=== PATIENT | female | born 1960 | race Caucasian/White ===

== ENCOUNTER 2016-04-29 11:06 | Emergency (ER) | payer MEDICARE, MEDICAID ==
[~2016-04-29] VITALS: Ht 175.3 cm; Wt 108.0 kg
[~2016-04-29 11:06] MED LIST: ASPI325T PO; DEPA500T3 PO; FERR140T PO; FIORIC PO; HYDR-2768 PO; LIPI40TA PO; LISI-363 PO; METO50TA PO; NOVO7030P2 SQ; ZOFR4TAB3 SL
[2016-04-29 11:08] VITALS: BP 203/95; PULSE 79; RESP 18; TEMP 97.5; O2SAT 95
[2016-04-29 11:23] VITALS: BP 162/72; PULSE 80; RESP 16; O2SAT 96
[2016-04-29] MEDS ORDERED: SODIUM CHLOR 0.9% 1000 ML INJ 1,000 ML IV ONE ×2 (11:32→12:02)
--- NOTE | 2016-04-29 11:34 | PD ---
HPI Chief Complaint: Abdominal Pain Time Seen by Provider: 11:21 Travel History International Travel<30 days: No Contact w/Intl Traveler<30days: No Traveled to known affect area: No History of Present Illness HPI 55-year-old female with history of diabetes, here for evaluation of nausea, dry heaves, diarrhea, and headache. Symptoms started this morning. Patient reports that she drank a moderate amount of alcohol last night. She takes alcohol occasionally. She thought she may have been experiencing a hangover, but this feels a little bit different than usual hangovers. Headache is frontal , 4 out of 10, somewhat improved after taking naproxen at home. No fever, but she feels chills. No neck pain or stiffness. No chest pain or dyspnea. No abdominal pain. Bowel movements are nonbloody. PFSH Past Medical History Anxiety: Yes Depression: Yes Cardiac Catheterization: Yes (X4) Cardiovascular Problems: Yes (HTN ) Cerebrovascular Accident: Yes Coronary Artery Disease: Yes Diabetes: Yes Patient Takes Glucophage: Yes Diminished Hearing: No Hypertension: Yes Myocardial Infarction: Yes Seizures: Yes Influenza Vaccination: No ?: Not Menopausal: Yes Past Surgical History Coronary Stent: Yes (4 STENTS) Social History Alcohol Use: Yes (OCC) Tobacco Use: Yes Substance Use: No Allergies-Medications (Allergen,Severity, Reaction): Coded Allergies: No Known Allergies (Unverified , 04/29/16) Reported Meds & Prescriptions Reported Meds & Active Scripts Active Reported Metoprolol Tartrate 50 Mg Tab 50 Mg PO DAILY Lisinopril 20 Mg Tab 20 Mg PO DAILY Novolin 70-30 Inj (Insulin Human Isoph/Insulin Regular) 1,000 Unit/10 Ml Vial 25 Units SQ BID Hydrochlorothiazide 25 Mg Tab 25 Mg PO DAILY Ferrous Sulfate 325 Mg Tab 325 Mg PO DAILY Depakote ER (Divalproex Sodium) 500 Mg Eri 500 Mg PO DAILY Aspirin 325 Mg Tab 325 Mg PO DAILY Review of Systems Except as stated in HPI: all other systems reviewed are Neg Physical Exam Narrative GENERAL: Well-developed, well-nourished, comfortable, no acute distress. SKIN: Warm and dry. HEAD: Atraumatic. Normocephalic. EYES: Pupils equal and round. No scleral icterus. No injection or drainage. ENT: No nasal bleeding or discharge. Mucous membranes pink and dry. NECK: Trachea midline. No JVD. CARDIOVASCULAR: Regular rate and rhythm. RESPIRATORY: No accessory muscle use. Clear to auscultation. Breath sounds equal bilaterally. GASTROINTESTINAL: Abdomen soft, non-tender, nondistended. MUSCULOSKELETAL: No obvious deformities. No clubbing. No cyanosis. No edema. NEUROLOGICAL: Awake and alert. No obvious cranial nerve deficits. Motor grossly within normal limits. Normal speech. PSYCHIATRIC: Appropriate mood and affect; insight and judgment normal. Data Data Last Documented VS Vital Signs Date Time Temp Pulse Resp B/P Pulse Ox O2 Delivery O2 Flow Rate FiO2 04/29/16 14:44 85 16 169/72 95 Room Air 04/29/16 11:08 97.5 Orders Electrocardiogram (04/29/16 11:32) Complete Blood Count With Diff (04/29/16 11:32) Comprehensive Metabolic Panel (04/29/16 11:32) Beta Hydroxybutyrate (Acetone) (04/29/16 11:32) Urinalysis - C+S If Indicated (04/29/16 11:32) Ecg Monitoring (04/29/16 11:32) Iv Access Insert/Monitor (04/29/16 11:32) Oximetry (04/29/16 11:32) NPO (04/29/16 11:32) Sodium Chlor 0.9% 1000 Ml Inj (Ns 1000 M (04/29/16 11:32) Sodium Chlor 0.9% 1000 Ml Inj (Ns 1000 M (04/29/16 12:02) Sodium Chloride 0.9% Flush (Ns Flush) (04/29/16 11:45) Lipase (04/29/16 11:32) Metoclopramide Inj (Reglan Inj) (04/29/16 11:45) Ct Abd/Pel W Iv Contrast(Rout) (04/29/16 12:54) Ct Brain W/O Iv Contrast(Rout) (04/29/16 ) Morphine Inj (Morphine Inj) (04/29/16 13:00) Iohexol 350 Inj (Omnipaque 350 Inj) (04/29/16 14:25) Labs Laboratory Tests Test 04/29/16 04/29/16 11:45 12:55 White Blood Count 8.6 TH/MM3 Red Blood Count 5.89 MIL/MM3 Hemoglobin 14.1 GM/DL Hematocrit 43.8 % Mean Corpuscular Volume 74.4 FL Mean Corpuscular Hemoglobin 24.0 PG Mean Corpuscular Hemoglobin 32.2 % Concent Red Cell Distribution Width 23.5 % Platelet Count 246 TH/MM3 Mean Platelet Volume 7.9 FL Neutrophils (%) (Auto) 83.3 % Lymphocytes (%) (Auto) 9.6 % Monocytes (%) (Auto) 2.1 % Eosinophils (%) (Auto) 3.9 % Basophils (%) (Auto) 1.1 % Neutrophils # (Auto) 7.2 TH/MM3 Lymphocytes # (Auto) 0.8 TH/MM3 Monocytes # (Auto) 0.2 TH/MM3 Eosinophils # (Auto) 0.3 TH/MM3 Basophils # (Auto) 0.1 TH/MM3 CBC Comment AUTO DIFF Differential Total Cells 100 Counted Neutrophils % (Manual) 63 % Band Neutrophils % 15 % Lymphocytes % 13 % Monocytes % 1 % Eosinophils % 6 % Basophils % 2 % Neutrophils # (Manual) 6.7 TH/MM3 Nucleated Red Blood Cells 1 /100 WBC Differential Comment FINAL DIFF MANUAL Platelet Estimate NORMAL Platelet Morphology Comment NORMAL Tear Drop Cells 1+ Ovalocytes 2+ Sodium Level 136 MEQ/L Potassium Level 4.9 MEQ/L Chloride Level 102 MEQ/L Carbon Dioxide Level 24.7 MEQ/L Anion Gap 9 MEQ/L Blood Urea Nitrogen 17 MG/DL Creatinine 0.99 MG/DL Estimat Glomerular Filtration 58 ML/MIN Rate Random Glucose 143 MG/DL Calcium Level 8.7 MG/DL Total Bilirubin 1.1 MG/DL Aspartate Amino Transf 29 U/L (AST/SGOT) Alanine Aminotransferase 27 U/L (ALT/SGPT) Alkaline Phosphatase 235 U/L Total Protein 7.3 GM/DL Albumin 3.9 GM/DL Lipase 134 U/L B-Hydroxybutyrate 0.10 MMOL/L Urine Color YELLOW Urine Turbidity CLEAR Urine pH 5.5 Urine Specific [place] 1.010 Urine Protein 30 mg/dL Urine Glucose (UA) NEG mg/dL Urine Ketones NEG mg/dL Urine Occult Blood NEG Urine Nitrite NEG Urine Bilirubin NEG Urine Urobilinogen LESS THAN 2.0 MG/DL Urine Leukocyte Esterase SMALL Urine RBC LESS THAN 1 /hpf Urine WBC 3 /hpf Urine Squamous Epithelial 2 /hpf Cells Urine Bacteria RARE /hpf Urine Hyaline Casts 2 /lpf Microscopic Urinalysis Comment CULT NOT INDICATED MDM Medical Decision Making Medical Screen Exam Complete: Yes Emergency Medical Condition: Yes Medical Record Reviewed: Yes Interpretation(s) EKG: Sinus, rate 80, normal axis, normal intervals, no acute ischemic abnormality. Differential Diagnosis Gastroenteritis, dehydration, DKA, metabolic abnormality, tension headache, cluster headache, SAH/meningitis/encephalitis unlikely Narrative Course Initial vital signs show heart rate 79, blood pressure 203/95 which improved to 162/72 without any intervention, pulse ox 96% on room air, oral temp of 97.5F. CBC shows WBCs 8.6, hemoglobin 14.1, hematocrit 43.8, platelets 246, neutrophils 83%, band neutrophils 15%. CMP shows an alkaline phosphatase of 235, random glucose 143, otherwise unremarkable. Beta hydroxybutyrate is 0.10. The patient is not in DKA. Patient was given 2 L of IV normal saline as well as IV Reglan. She is still complaining of headache as well as nauseous and this and cramping in her abdomen. CT abdomen and pelvis and CT head will be ordered. CT head: CONCLUSION: No acute intracranial abnormality is identified. There is encephalomalacia in the left frontal periventricular white matter. CT abdomen pelvis: CONCLUSION: 1. No acute finding is identified to explain the abdominal pain. 2. Liver has a morphology diagnostic of cirrhosis. There is also splenomegaly suggesting portal hypertension. 3. Abnormal increased density of the pelvic bones, sacrum, and proximal femora. The appearance is not typical for Paget's disease but that is included in the differential diagnosis. It seems unlikely that metastatic disease would involve these localized area. However, this finding should be correlated with the clinical history. 4. Calcification in the gallbladder fossa region may represent a calcified stone are in a decompressed gallbladder. 5. Calcified uterus mass measuring 6 cm likely representing a leiomyoma but incompletely characterized on this study. The patient was made aware of all findings and was provided a copy of her CT abdomen pelvis report. She was given 2 L of normal saline IV, IV Reglan, and IV morphine and is feeling much improved. Her headache has resolved. She no longer feels nauseous. I discussed in depth all findings on her CT abdomen pelvis. All of these findings can be followed up as an outpatient. Patient states that she is in the process of finding a primary care physician, and believes she will have a new primary care physician this week. She is stable for discharge home with outpatient follow-up. She was informed on when to return to the emergency department. She verbalizes understanding and agreement with plan. Diagnosis Primary Impression: Nausea Additional Impressions: Abdominal pain Qualified Code: R10.9 - Abdominal pain, unspecified location Headache Qualified Code: R51 - Nonintractable headache, unspecified chronicity pattern , unspecified headache type Referrals: Primary Care Physician 3 days Additional Instructions: Follow-up with a primary care physician this week regarding your CT abdomen findings. Return to the emergency department for worsening symptoms or any other concerns. Scripts Ondansetron Odt (Zofran Odt)4 Mg Tab4 Mg SL Q6HR PRN (Nausea/Vomiting) #15 TAB Ref 0 Prov:Bairon Hankins MD 04/29/16 Disposition: 01 DISCHARGE HOME Condition: Stable Bairon Hankins MD Apr 29, 2016 11:34
[2016-04-29] MEDS ORDERED: METOCLOPRAMIDE HCL 10 MG/2 ML VIAL IV PUSH ONE (11:45)
[2016-04-29] MEDS ORDERED: SODIUM CHLORIDE 0.9% FLUSH 5 ML FLUSH IVF PRN (11:45)
[2016-04-29] MEDS ORDERED: DEPA500T3 PO (11:57)
[2016-04-29] MEDS ORDERED: ASPI325T PO (11:57)
[2016-04-29] MEDS ORDERED: HYDR25TA5 PO (11:57)
[2016-04-29] MEDS ORDERED: NOVO7030P2 SQ (11:57)
[2016-04-29] MEDS ORDERED: LISI-515 PO (11:57)
[2016-04-29] MEDS ORDERED: FERR325T PO (11:57)
[2016-04-29] MEDS ORDERED: METO50TA PO (11:57)
[2016-04-29 12:02] LABS: AUTOMATED NEUTROPHIL # 7.2 TH/MM3 (1.8-7.7); BASOPHIL # 0.1 TH/MM3 (0-0.2); BASOPHIL % 1.1 % (0.0-2.0); EOSINOPHIL # 0.3 TH/MM3 (0-0.4); EOSINOPHIL % 3.9 % (0.0-4.0); HEMATOCRIT 43.8 % (35.0-46.0); LYMPH % 9.6 % (9.0-44.0); LYMPHOCYTE # 0.8 TH/MM3 (1.0-4.8); MEAN CELL VOLUME 74.4 FL (80.0-100.0); MEAN CORPUSCULAR HGB CONC 32.2 % (32.0-36.0); MONO % 2.1 % (0.0-8.0); NEUT % 83.3 % (16.0-70.0); PLATELET COUNT 246 TH/MM3 (150-450); RED BLOOD COUNT 5.89 MIL/MM3 (4.00-5.30); RED CELL DISTRIBUTION WIDTH 23.5 % (11.6-17.2); WHITE BLOOD COUNT 8.6 TH/MM3 (4.0-11.0)
[2016-04-29 12:04] LABS: HEMO FLAGS AUTO DIFF
[2016-04-29 12:28] LABS: ALKALINE PHOSPHATASE 235 U/L (45-117); ALT (GPT) 27 U/L (10-53); ANION GAP 9 MEQ/L (5-15); AST (GOT) 29 U/L (15-37); BICARBONATE 24.7 MEQ/L (21.0-32.0); BLOOD UREA NITROGEN 17 MG/DL (7-18); CHLORIDE 102 MEQ/L (98-107); GLOMERULAR FILTRATION RATE 58 ML/MIN (>89); SODIUM (NA) 136 MEQ/L (136-145); TOTAL BILIRUBIN ADULT 1.1 MG/DL (0.2-1.0)
[2016-04-29 12:29] LABS: POTASSIUM 4.9 MEQ/L (3.5-5.1)
[2016-04-29 12:43] LABS: BANDS 15 % (0-6); BASOPHILS 2 % (0-2); CORRECTED NUCLEATED RBC 1 /100 WBC (0-0); EOSINOPHILS 6 % (0-4); NEUTROPHIL # MANUAL DIFF 6.7 TH/MM3 (1.8-7.7); POLYS (SEG NEUTROPHILS) 63 % (16-70); WBC DIFF SAMPLE 100
[2016-04-29 12:44] LABS: PLATELET ESTIMATE SMEAR NORMAL (NORMAL); PLATELET MORPHOLOGY NORMAL (NORMAL)
[2016-04-29 12:45] LABS: OVALOCYTES 2+ (NORMAL)
[2016-04-29 12:46] LABS: SCAN/DIFF FINAL DIFF MANUAL; TEARDROP RBCS 1+ (NORMAL)
[2016-04-29] MEDS ORDERED: MORPHINE SULFATE 4 MG/ML INJ IV PUSH ONE (13:00)
[2016-04-29 13:20] LABS: BACTERIA, URINE RARE /hpf; BLOOD, URINE NEG (NEG); COMMENT (UR) CULT NOT INDICATED; CULTURE IF INDICATED CULT NOT INDICATED; GLUCOSE,URINE NEG (NEG); HYALINE CAST, URINE 2 /lpf (RARE); KETONE, URINE NEG (NEG); NITRITE,URINE NEG (NEG); PH, URINE 5.5 (5.0-8.5); SQUAMOUS EPITHELIAL CELL URINE 2 /hpf (0-5); URINE COLOR YELLOW (YELLW/STRAW)
[2016-04-29] MEDS ORDERED: IOHEXOL 350 MG/ML 10 ML VIAL (for RAD DIAG) IV ONE (14:25)
--- NOTE | 2016-04-29 14:27 | RADRPT ---
EXAM DATE/TIME: 04/29/2016 14:00 [facility] COMPARISON: No previous studies available for comparison. INDICATIONS : Altered mental status. RADIATION DOSE: 56.35 CTDIvol (mGy) MEDICAL HISTORY : Cerebrovascular disease. Seizures. Diabetes mellitus type 2. SURGICAL HISTORY : None. ENCOUNTER: Initial ACUITY: 1 day PAIN SCALE: 4/10 LOCATION: cranial TECHNIQUE: Multiple contiguous axial images were obtained of the head. Using automated exposure control and adj ustment of the mA and/or kV according to patient size, radiation dose was kept as low as reasonably a chievable to obtain optimal diagnostic quality images. FINDINGS: CEREBRUM: The ventricles are normal. There is encephalomalacia in the left frontal periventricular white matter . No evidence of midline shift, mass lesion, hemorrhage or acute infarction. No extra-axial fluid c ollections are seen. POSTERIOR FOSSA: The cerebellum and brainstem demonstrate no acute finding. The 4th ventricle is midline. The cerebe llopontine angle is unremarkable. EXTRACRANIAL: Visualized sinuses are clear. SKULL: The calvaria is intact. No evidence of skull fracture. CONCLUSION: No acute intracranial abnormality is identified. There is encephalomalacia in the left frontal perive ntricular white matter. Frederic Hampton MD on April 29, 2016 at 14:24 Board Certified Radiologist. This report was verified electronically.
--- NOTE | 2016-04-29 14:38 | RADRPT ---
EXAM DATE/TIME: 04/29/2016 14:02 [facility] COMPARISON: No previous studies available for comparison. INDICATIONS : Abdomen pain, nausea IV CONTRAST: 76 cc Omnipaque 350 (iohexol) IV ORAL CONTRAST: No oral contrast ingested. RADIATION DOSE: 13.35 CTDIvol (mGy) MEDICAL HISTORY : Cerebrovascular disease. Seizures. Diabetes mellitus type 2. SURGICAL HISTORY : None. ENCOUNTER: Initial ACUITY: 1 day PAIN SCALE: 5/10 LOCATION: Abdomen TECHNIQUE: Volumetric scanning of the abdomen and pelvis was performed. Using automated exposure control and ad justment of the mA and/or kV according to patient size, radiation dose was kept as low as reasonably achievable to obtain optimal diagnostic quality images. FINDINGS: LOWER LUNGS: There is motion artifact. No definite acute finding is identified. LIVER: Lobulated contour characteristic of cirrhosis with right lobe atrophy. There is curvilinear calcifica tion with gas centrally overlying the gallbladder fossa region. This may represent a stone containing nitrogen gas within a decompressed gallbladder but otherwise the gallbladder is not clearly visualiz ed. There is no dilation of the biliary tree. SPLEEN: Markedly enlarged measuring 18.2 cm in length. No lesion is seen. PANCREAS: Within normal limits. KIDNEYS: Normal in size and shape. There is no mass, stone or hydronephrosis. ADRENAL GLANDS: Within normal limits. VASCULAR: There is no aortic aneurysm. There is moderate atherosclerotic disease. BOWEL/MESENTERY: The stomach, small bowel, and colon demonstrate no acute abnormality. There is no free intraperitone al air or fluid. There is sigmoid diverticulosis. The appendix is normal. ABDOMINAL WALL: Within normal limits. RETROPERITONEUM: There is no lymphadenopathy. BLADDER: No wall thickening or mass. REPRODUCTIVE: There is a partially calcified fundal mass in the uterus measuring approximately 6 cm. No adnexal abn ormality is seen. INGUINAL: There is no lymphadenopathy or hernia. MUSCULOSKELETAL: There is abnormal sclerosis involving the pelvic bones and proximal femora bilaterally as well as the sacrum to certain degree. Remaining bones of the lumbar spine and ribs demonstrate no acute finding. CONCLUSION: 1. No acute finding is identified to explain the abdominal pain. 2. Liver has a morphology diagnostic of cirrhosis. There is also splenomegaly suggesting portal hyper tension. 3. Abnormal increased density of the pelvic bones, sacrum, and proximal femora. The appearance is not typical for Paget's disease but that is included in the differential diagnosis. It seems unlikely th at metastatic disease would involve these localized area. However, this finding should be correlated with the clinical history. 4. Calcification in the gallbladder fossa region may represent a calcified stone are in a decompresse d gallbladder. 5. Calcified uterus mass measuring 6 cm likely representing a leiomyoma but incompletely characterize d on this study. Frederic Hampton MD on April 29, 2016 at 14:30 Board Certified Radiologist. This report was verified electronically.
[2016-04-29 14:44] VITALS: BP 169/72; PULSE 85; RESP 16; O2SAT 95
[2016-04-29] MEDS ORDERED: ZOFR4TAB3 SL (14:47)
--- NOTE | 2016-04-30 14:20 | EKG ---
Date Performed: 04/29/2016 Time Performed: 12:04:41 PTAGE: 55 years EKG: Sinus rhythm NORMAL ECG Compared to prior tracing no significant change PREVIOUS TRACING : 09/10/2013 22.53 DOCTOR: Juan Diego Sams Interpretating Date/Time 04/30/2016 14:19:57
== END 2016-04-29 15:08 | disposition home or self-care (01) ==
LOC: NEPC 11:06
DX: R11.0 Nausea (principal); R10.9 Unspecified abdominal pain; R51 Headache; K74.60 Unspecified cirrhosis of liver; I10 Essential (primary) hypertension; I25.10 Atherosclerotic heart disease of native coronary artery without angina pectoris; E11.9 Type 2 diabetes mellitus without complications; I25.2 Old myocardial infarction; Z79.4 Long term (current) use of insulin; M89.8X8 Other specified disorders of bone, other site; K82.8 Other specified diseases of gallbladder; Z72.0 Tobacco use
CPT/HCPCS: 70450; 74177; 80053; 81001; 82010; 83690; 85007; 85027; 93005; 96361; 96374; 96375; 99284; J2270; J2765; J7030; Q9967